=== PATIENT | male | born 1995 | race Caucasian/White ===

== ENCOUNTER → 2017-04-16 | Outpatient (CLI) | payer BC | END | disposition home or self-care (01) | LOC: LABWHC1 16:41 | PROVIDERS: ATTEND Nurse Practitioner Acute Care | DX: H53.2 Diplopia (principal); M25.562 Pain in left knee | CPT/HCPCS: 36415 ==

== ENCOUNTER → 2017-04-16 | Outpatient (CLI) | payer BC ==
--- NOTE | 2017-04-16 17:21 | XR ---
EXAMINATION TYPE: XR knee complete LT DATE OF EXAM: 04/16/2017 COMPARISON: NONE HISTORY: Knee pain TECHNIQUE: 3 views FINDINGS: I see no fracture nor dislocation. Joint spaces are normal. There are no pathologic calcifi cations. IMPRESSION: Normal left knee.
== END | disposition home or self-care (01) ==
LOC: RADXRMAIN 16:58
PROVIDERS: ATTEND Family Medicine
DX: M25.562 Pain in left knee (principal)

== ENCOUNTER → 2017-04-30 | Outpatient (CLI) | payer BC ==
--- NOTE | 2017-05-03 12:12 | MR ---
EXAMINATION TYPE: MR brain wo con DATE OF EXAM: 04/30/2017 COMPARISON: NONE HISTORY: Double vision T1-weighted sagittal, T2, FLAIR, and diffusion axial, and T2 coronal coronal views of the brain are s ubmitted. There is no evidence of acute ischemia. The ventricles, basal cisterns, and sulci overlying the conv exities are consistent with the patient's age. There is no mass effect. Craniocervical junction maintained. Sella turcica has a normal appearance. No cerebellopontine angle mass. There are bilateral nodules within the parotid glands. 2 small to leonora racterize could be correlated with ultrasound. White matter: No definite sizable area of abnormal signal within the white matter. IMPRESSION: 1. No acute intracranial process. 2. Small bilateral parotid gland nodules too small to characterize could be correlated with ultrasoun d if clinically warranted.
== END | disposition home or self-care (01) ==
LOC: RADMRIMAIN 20:29
PROVIDERS: ATTEND Nurse Practitioner Acute Care
DX: H53.2 Diplopia (principal); Z88.2 Allergy status to sulfonamides
CPT/HCPCS: 70551

== ENCOUNTER → 2018-03-21 | Outpatient (CLI) | payer BC ==
[2018-03-21 11:25] LABS: ALT 28 U/L (21-72); AST 20 U/L (17-59); Albumin 4.6 g/dL (3.5-5.0); Alkaline Phosphatase 48 U/L (38-126); Anion Gap 7 mmol/L; Blood Urea Nitrogen 15 mg/dL (9-20); Calcium 9.8 mg/dL (8.4-10.2); Carbon Dioxide 26 mmol/L (22-30); Chloride 108 mmol/L (98-107); Cholesterol 200 mg/dL (<200); Glucose 91 mg/dL (74-99); HDL Cholesterol 36 mg/dL (40-60); LDL Cholesterol,Calculated 142 mg/dL (0-99); Potassium 4.4 mmol/L (3.5-5.1); Sodium 141 mmol/L (137-145); Total Bilirubin 1.1 mg/dL (0.2-1.3); Total Protein 7.4 g/dL (6.3-8.2); Triglycerides 108 mg/dL (<150)
[2018-03-21 11:36] LABS: T4, Free (Free Thyroxine) 1.37 ng/dL (0.78-2.19)
[2018-03-21 12:14] LABS: Basophils % (A) 0 %; Eosinophils # (A) 0.2 k/uL (0-0.7); Eosinophils % (A) 2 %; HCT 49.9 % (39.0-53.0); HGB 16.1 gm/dL (13.0-17.5); Lymphocytes # (A) 2.9 k/uL (1.0-4.8); Lymphocytes % (A) 33 %; MCH 26.7 pg (25.0-35.0); MCHC 32.4 g/dL (31.0-37.0); MCV 82.4 fL (80.0-100.0); Mean Platelet Volume 8.1; Monocytes # (A) 0.4 k/uL (0-1.0); Monocytes % (A) 4 %; Neutrophils # (A) 5.4 k/uL (1.3-7.7); Neutrophils % (A) 60 %; Platelet Count 192 k/uL (150-450); RBC 6.05 m/uL (4.30-5.90); RDW 13.7 % (11.5-15.5)
== END | disposition home or self-care (01) ==
LOC: LABWHC1 10:34
PROVIDERS: ATTEND Family Medicine
DX: Z00.00 Encounter for general adult medical examination without abnormal findings (principal); E78.00 Pure hypercholesterolemia, unspecified
CPT/HCPCS: 36415; 80053; 80061; 84439; 84443; 85025

== ENCOUNTER → 2020-11-19 | Outpatient (CLI) | payer BC | LOC: CPPFTMAIN 13:12 | PROVIDERS: ATTEND Family Medicine | DX: R06.02 Shortness of breath (principal) | CPT/HCPCS: 94060; 94726; 94729 ==

== ENCOUNTER 2020-11-20 14:01 | Emergency (ER) | payer BC ==
[2020-11-20 15:43] VITALS: RESP 18
--- NOTE | 2020-11-20 16:38 | XR ---
EXAMINATION TYPE: XR chest 2V DATE OF EXAM: 11/20/2020 COMPARISON: 10/05/2006 INDICATION: Short of breath, cough TECHNIQUE: Frontal and lateral views of the chest are obtained. FINDINGS: The heart size is normal. The pulmonary vasculature is normal. The lungs are clear. IMPRESSION: 1. No acute pulmonary process.
--- NOTE | 2020-11-20 18:32 | ED ---
SOB HPI - General Chief Complaint: Shortness of Breath Stated Complaint: MARVA Source: patient Mode of arrival: ambulatory Limitations: no limitations - History of Present Illness Initial Comments: 25-year-old previously healthy male who presents emergency room with reported shortness of breath. Patient states he's been short of breath for the past week and has been seen his primary care physician for such. States that he has exertional dyspnea. No previous history of underlying lung conditions. No family history of premature cardiac . Patient's is currently on a pr ednisone taper and using an inhaler which was prescribed by his primary care doctor. They also sent him for pulmonary function testing yesterday however the patient has yet to get the results. He does have an appointment on Wednesday for follow-up. Patient denies any chest pain. No fevers or chills. Denies cough. 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 No other alleviating, precipitating or modifying factors - Related Data Allergies Allergy/AdvReac Type Severity Reaction Status Date / Time Sulfa (Sulfonamide Allergy Rash/Hives Verified 11/20/20 15:42 Antibiotics) Review of Systems ROS Statement: Those systems with pertinent positive or pertinent negative responses have been documented in the HPI. ROS Other: All systems not noted in ROS Statement are negative. Past Medical History Additional Past Medical History / Comment(s): Covid 07/2020 History of Any Multi-Drug Resistant Organisms: None Reported Past Surgical History: Tonsillectomy Past Psychological History: No Psychological Hx Reported Smoking Status: Never smoker Past Alcohol Use History: None Reported Past Drug Use History: None Reported General Exam Limitations: no limitations Course Vital Signs 11/20/20 11/20/20 15:39 18:40 Temperature 97.8 F 98 F Pulse Rate 84 82 Respiratory 18 18 Rate Blood Pressure 141/86 131/82 O2 Sat by Pulse 100 99 Oximetry Medical Decision Making - Medical Decision Making Upon arrival patient was placed into room to room. There are history and physical exam was performed. Patient is swabbed for coverage which is negative. Chest x-ray demonstrates no acute cardiopulmonary process. 12-lead EKG demonstrates no acute findings. These results are discussed the patient. Patient does have follow-up with his primary care doctor on Wednesday for results of his Pulmicort function testing. Patient maintained saturations of 100% throughout his stay in the emergency department. At this time patient will be discharged home in stable follow-up at his appointment on Wednesday. Return to the emergency room for any new or worsening symptoms per patient was discharged home in stable condition - Lab Data Lab Results 11/20/20 Range/Units 15:44 Coronavirus (PCR) Not Detected (Not Detectd) - EKG Data EKG Comments: EKG demonstrates a sinus rhythm with a ventricular rate of 76. CA interval 134. QRS 12. QTC of 445. No acute ST segment elevations or depressions Disposition Clinical Impression: Respiratory insufficiency Disposition: HOME SELF-CARE Condition: Stable Instructions (If sedation given, give patient instructions): Shortness of Breath (ED) Additional Instructions: Please follow up on Wednesday with your PCP for your pulmonary function testing results. Finish the steroids. Return to the ED for any new or worsening symptoms. Is patient prescribed a controlled substance at d/c from ED?: No Referrals: Bj Bang MD [Primary Care Provider] - 1-2 days Jesus Schmitz DO [Doctor of Osteopathic Medicine] - 1-2 days Time of Disposition: 18:32
[2020-11-20 18:41] VITALS: BP 131/82; PULSE 82; TEMP 98
== END 2020-11-20 18:40 | disposition home or self-care (01) ==
LOC: EC 14:01
DX: R06.89 Other abnormalities of breathing (principal); R06.02 Shortness of breath; Z20.822 Contact with and (suspected) exposure to COVID-19; Z86.16 Personal history of COVID-19
CPT/HCPCS: 71046; 87635; 93005; 99285